=== PATIENT | female | born 1940 | race Caucasian/White ===

== ENCOUNTER 2016-05-10 05:08 | Inpatient (IN) ==
[2016-05-10] MEDS ORDERED: Naloxone 0.4 MG/ML INJ IVP PRN (09:07)
--- NOTE | 2016-05-10 09:50 | Internal Med History&Physical ---
Date of Encounter: 05/10/16 Time of Encounter: 09:49 Assessment and Plan (1) Bilateral leg weakness Status: Inactive Bilateral lower limb weakness: -Possible multi-factorial. -CT scan of the brain is normal, CT scan of the cervical spine is normal Imaging did not show any major issues. Plan -Neurology opinion. -Physical therapy/occupational therapy evaluation -Close observation -Imaging done of right shoulder and hip along with pelvis: No abnormality noted (2) Hyperglycemia due to type 2 diabetes mellitus Status: Inactive Patient is a hyperglycemia likely secondary to underlying stress We will resume her home insulin dose. I do anticipate elevated blood sugar for next 24-36 hours. We will also closely. 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 Qualified Code(s): E11.65 - Type 2 diabetes mellitus with hyperglycemia (3) Hypertension Status: Chronic We will resume home medication Qualifiers: Hypertension type: essential hypertension Qualified Code(s): I10 - Essential (primary) hypertension (4) DVT prophylaxis Status: Acute Heparin Medical decision making: This patient has [id number] risk of worsening in spite of being on appropriate therapy Internal Medicine - H&P: HPI Chief complaint: Multiple falls Admitted From: Hospital to Hospital Transfer Plans for Post Hospital Care: Home History of present illness: PCP:Dr Lakhani Brief PMH: COPD, CVA, diabetes, hyperlipidemia, hypertension History of present illness: 75-year-old female was admitted at [facility] emergency room. She was evaluated in the [facility] emergency room for bilateral lower limb weakness. Patient had a fall and she was in [place] down there for more than 10 minutes. Patient was lying down on her right side. Patient denied at that time neck pain. This fall happened on . Patient was taken home by her family. Since Wednesday patient has a persistent back pain, neck pain and headache. In last 24-48 hours her pain was progressively worsened and that made to go to the emergency room [facility]. Workup at emergency room: Patient was examined at emergency room. She underwent CT scan of the head and CT scan of the cervical spine. Imaging did not show any major abnormality. Patient was transferred to this hospital for further evaluation. The reason for transfer is possible trauma/rhabdomyolysis. Reason for transfer: Multiple falls. Patient had a previous cervical spine surgery. To rule out rhabdomyolysis. Family history noncontributory. Past Med Surg Social Fam HX - Past Medical History Medical history: COPD, CVA, diabetes, hyperlipidemia, hypertension Psychiatric history: no psych history - Social History Smoking Status: Never smoker Smokeless Tobacco Status: No Alcohol use: none Drug use: none Internal Medicine - H&P: Meds Bumetanide [Bumex] 0.5 mg PO QAM 03/19/15 [History] Gabapentin [Neurontin] 300 mg PO BID 03/19/15 [History] Insulin ASPART [NovoLOG] 26 - 40 unit SQ BID 03/19/15 [History] Lisinopril [Zestril] 40 mg PO QAM 03/19/15 [History] Metformin [Glucophage] 1,000 mg PO BIDWM 03/19/15 [History] Metoprolol [Lopressor] 50 mg PO BID 03/19/15 [History] Simvastatin [Zocor] 40 mg PO HS 03/19/15 [History] Amlodipine [Norvasc] 5 mg PO DAILY #30 tablet 05/14/16 [Rx] Ciprofloxacin HCl [Cipro] 500 mg PO BID #14 tablet 05/14/16 [Rx] Simethicone [Gas-X] 80 mg PO TID PRN #20 tab.chew 05/14/16 [Rx] Walker W Wheels [WHEELED WALKER] 1 each .ROUTE AD #1 each 05/14/16 [Rx] Allergies No Known Allergies Allergy (Verified 03/19/15 10:39) All Systems PM: A 10-system review of systems was performed and is negative for pertinent findings except as documented above in the HPI. - Constitutional Constitutional: lethargy, malaise, weakness, no chills, no fever(s), no night sweats - EENT Eyes: no change in vision, no discharge, no pain, no photophobia Ears: no ear discharge, no ear pain, no tinnitus Nose, mouth and throat: no dysphagia, no nasal discharge, no neck pain, no sore throat - Cardiovascular Cardiovascular ROS IM: no chest pain, no diaphoresis, no dyspnea, no lightheadedness, no palpitations, no syncope - Respiratory Respiratory: no cough, no dyspnea, no wheezing, no excessive phlegm production - Gastrointestinal Gastrointestinal: no abdominal pain, no diarrhea, no hematemesis, no hematochezia, no melena, no nausea, no vomiting - Genitourinary Genitourinary: no change in urinary stream, no dysuria, no flank pain, no hematuria - Musculoskeletal Musculoskeletal ROS IM: no numbness, no tingling - Integumentary Integumentary IM: no rash, no unusual bruising - Neurological Neurological ROS: no confusion, no convulsions, no focal weakness, no numbness, no tingling, no tremor(s) - Hematologic/Lymphatic Hematologic/Lymphatic: no easy bruising - Constitutional Vitals: Temp Pulse Resp BP Pulse Ox 98.7 F 72 18 138/67 94 L 05/10/16 07:01 05/10/16 07:01 05/10/16 07:01 05/10/16 07:01 05/10/16 07:01 General appearance: Present: A&O X 3, pleasant, no acute distress, answers questions appropriately - Head Head exam: Present: atraumatic, normocephalic - Eye Eye exam: Present: PERRL, conjuntiva pink, sclera anicteric Pupils: Present: PERRL - Neck Neck exam general surgery: Present: supple, trachea midline. Absent: lymphadenopathy - Respiratory Respiratory exam: Present: CTAB. Absent: accessory muscle use, rales, rhonchi, wheezes - Cardiovascular Cardiovascular exam: Present: RRR, +S1, +S2. Absent: diastolic murmur, gallop, rubs, systolic murmur - GI/Abdominal GI/Abdominal exam: Present: normal bowel sounds, soft, no peritoneal signs. Absent: distended, tenderness - Extremities Exam Extremities exam: Present: warm, radial pulses palpable and symetrical. Absent : calf tenderness, cyanotic, pedal edema - Neurological Exam Neurological exam: Present: CN II-XII intact, oriented X3, no focal deficits. Absent: pronater drift, facial droop, speech deficit - Skin Skin exam: Present: dry, intact Internal Med - H&P Results - Labs CBC & Chem 7: 05/13/16 06:16 05/14/16 04:04
[2016-05-10] MEDS ORDERED: Dextrose Gel 15 GM PO PRN ×2 (09:57)
[2016-05-10] MEDS ORDERED: D5% in Water 1,000 ML IV PRN (09:57)
[2016-05-10] MEDS ORDERED: *HR* Dextrose 50 % in Water (Syg) 50 ML SYRINGE IVP PRN (09:57)
[2016-05-10] MEDS: *HR* Morphine 2 MG/ML SYRINGE IVP PRN ×2 (11:55→19:39)
[2016-05-10] MEDS: 0.9 % Sodium Chloride 1,000 ML IVC SCH (12:40)
[2016-05-10] MEDS: Insulin LISPRO 300 UNITS/3 ML VIAL SQ SCH ×3 (13:12→19:45)
--- NOTE | 2016-05-10 17:23 | Neurology - Consult Note ---
Date of Encounter: 05/10/16 Time of Encounter: 17:21 Assessment and Plan (1) Bilateral leg weakness Current Visit: No Status: Acute Patient seemed to have a fall and no continued to have some problem of the lower extremity but predominantly weakness and difficulty with a gait imbalance no focal findings on examination particularly because some of his stroke symptoms are more of bilateral biopsy may have underlying degenerative lumbar spine and symptoms could be related. She may benefit from imaging studies of the lumbar spine. She already had a CT of the cervical spine that did not show any acute abnormality though we may do an MRI of the cervical spine but usually is not helpful due to the hardware artifact No evidence of any stroke on CT of the head and also not on examiner history do not think any MRI of the brain would be helpful at this time Check for any underlying metabolic or infectious processes that may be causing or contributing to her symptoms I would also recommend checking for vitamin B12 folate and TSH if not done so She may benefit from short-term rehabilitation physical therapy evaluation particularly for gait and balance training exercises (2) H/O cervical spine surgery Current Visit: Yes Status: Acute History of Present Illness HPI: Ms. Guzman is a 75 year old female who apparently was evaluated in the [facility] emergency room for bilateral lower limb weakness. Patient had a fall and she was in [place] down there for more than 10 minutes. Patient was lying down on her right side. Patient denied at that time neck pain. This fall happened on . Patient was taken home by her family. Since Wednesday patient has a persistent back pain, neck pain and headache. In last 24-48 hours her pain was progressively worsened and that made to go to the emergency room [facility]. She underwent CT scan of the head and CT scan of the cervical spine. Both of them were negative for any acute process she was transferred to this hospital for further evaluation. Patient has a history of cervical surgery about 2 years ago has done fairly well she did have significant weakness and numbness and paresthesias before the surgery but able to walk without any help after the surgery Past Med Surg Social Fam HX - Past Medical History Medical history: COPD, CVA, diabetes, hyperlipidemia, hypertension Psychiatric history: no psych history - Social History Smoking Status: Never smoker Smokeless Tobacco Status: No Alcohol use: none Drug use: none Medications and Allergies Bumetanide [Bumex] 0.5 mg PO QAM 03/19/15 [History] Gabapentin [Neurontin] 300 mg PO BID 03/19/15 [History] Insulin ASPART [NovoLOG] 26 - 40 unit SQ BID 03/19/15 [History] Lisinopril [Zestril] 40 mg PO QAM 03/19/15 [History] Metformin [Glucophage] 1,000 mg PO BIDWM 03/19/15 [History] Metoprolol [Lopressor] 50 mg PO BID 03/19/15 [History] Simvastatin [Zocor] 40 mg PO HS 03/19/15 [History] Allergies No Known Allergies Allergy (Verified 03/19/15 10:39) All Systems: A 10-system review of systems was performed and is negative for pertinent findings except as documented above in the HPI. Physical Examination - Vital Signs Vital Signs: Initial Vital Signs Temp Pulse Resp BP Pulse Ox 98.7 F 72 18 138/67 94 L 05/10/16 07:01 05/10/16 07:01 05/10/16 07:01 05/10/16 07:01 05/10/16 07:01 - Constitutional General appearance: comfortable - Neurologic Detailed motor examination: full strength in all major muscle groups Motor examination - right side: 4/5: director of anesthesia services, hip flexors, tibialis Anterior, quadriceps, toe extension (EHL), plantarflexion, 5/5: deltoids, biceps, triceps , wrist flexion, wrist extension Motor examination - left side: 4/5: hip flexors, director of anesthesia services, quadriceps, tibialis Anterior, toe extension (EHL), plantarflexion, 5/5: deltoids, biceps, triceps, wrist flexion, wrist extension Detailed sensory examination: intact Reflexes: Biceps: 1+, Triceps: 1+, Brachioradialis: 1+, Patella: 1+, Achilles: 1 + Mental Status Examination: awake, alert, oriented to person, oriented to place, oriented to time, follows commands appropriately, answers questions appropriately, no agnosia, no aphasia, no aproxia Cranial nerve examination: PERRL, EOMI, visual jc intact, corneal reflexes brisk symmetrically, sensory to face intact, mastication intact, no facial asymmetry is present, no dysarthria, hearing is intact symmetrically, soft palate elevates bilaterally upon phonation, gag reflex intact, flexes SCM and trapezius muscles symmetrically with full power, tongue protrudes midline, no atrophy or facial fasiculations present Cerebellar examination: no dysmetria, performs finger to nose and heel to eng symmetrically without ataxia, no gait ataxia, no truncal ataxia, no difficulty with rapid alternating movements Results - Laboratory Findings Abnormal lab findings: Abnormal lab results POC Glucose 333 (58-89) H 05/10/16 16:09 Consult Discharge Plan - Plan Referrals: Franc Lakhani, [Primary Care Provider] -
[2016-05-10] MEDS: Gabapentin 300 MG CAPSULE PO SCH (19:40)
[2016-05-10] MEDS ORDERED: Insulin LISPRO 300 UNITS/3 ML VIAL SQ SCH (21:00)
[2016-05-11] MEDS: 0.9 % Sodium Chloride 1,000 ML IVC SCH ×2 (00:52→17:15)
[2016-05-11] MEDS: *HR* Morphine 2 MG/ML SYRINGE IVP PRN ×4 (00:58→21:32)
[2016-05-11 01:20] LABS: Basophils % 0.3 %; Eosinophils # 0.5 K/mcL (0.0-0.6); Eosinophils % 4.7 %; Hematocrit 34.9 % (35.3-44.9); Hemoglobin 10.8 g/dL (11.5-15.4); Immature Granulocytes % 0.3 % (0-4); Lymphocytes % 51.3 %; Mean Corpuscular HGB Conc 30.9 g/dL (31.6-35.5); Mean Corpuscular Hemoglobin 26.2 pg (28.0-33.3); Mean Corpuscular Volume 84.7 fL (83.0-100.0); Mean Platelet Volume 11.4 fL (9.4-12.4); Monocytes # 0.8 K/mcL (0.0-1.3); Monocytes % 8.2 %; Neutrophils # 3.5 K/mcL (1.6-8.9); Platelet Count 230 K/mcL (140-400); Red Blood Count 4.12 M/mcL (3.82-4.97); Red Cell Distribution Width 13.7 % (11.5-14.5); Segmented Neutrophils % 35.2 %
[2016-05-11 01:28] LABS: Alanine Aminotransferase 10 Units/L (0-55); Albumin 2.7 g/dL (3.5-5.0); Albumin/Globulin Ratio 0.8 (1.1-2.2); Alkaline Phosphatase 91 Units/L (38-126); Aspartate Amino Transferase 9 Units/L (5-34); BUN/Creatinine Ratio 21 (6-26); Bilirubin,Total 0.3 mg/dL (0.2-1.2); Blood Urea Nitrogen 22 mg/dL (7-20); Calcium 8.5 mg/dL (8.6-10.8); Carbon Dioxide 26 mEq/L (19-29); Chloride 106 mEq/L (98-109); Chol/HDL Ratio 3.9 (0-4.9); Cholesterol 167 mg/dL (< 200); Globulin 3.6 g/dL (2.4-3.5); Glucose 256 mg/dL (70-99); HDL Cholesterol 43 mg/dL (40-59); LDL Cholesterol,Calculated 96 mg/dL (0-99); Magnesium 1.9 mg/dL (1.6-2.6); Osmolality,Calculated 300 (280-300); Phosphorous 4.2 mg/dL (2.3-4.7); Potassium 4.7 mEq/L (3.5-4.5); Sodium 139 mEq/L (136-145); Total Protein 6.3 g/dL (6.0-8.3); Triglycerides 142 mg/dL (< 150); eGFR For African Americans > 60 (> 60); eGFR For Non-African Americans 50 (> 60)
[2016-05-11] MEDS: Insulin LISPRO 300 UNITS/3 ML VIAL SQ SCH ×4 (08:39→23:25)
[2016-05-11] MEDS: Gabapentin 300 MG CAPSULE PO SCH ×2 (08:39→23:25)
[2016-05-11] MEDS: Lisinopril 20 MG TABLET PO SCH (08:39)
--- NOTE | 2016-05-11 11:02 | Neurology Progress Note ---
<Alex Pelletier - Last Filed: 05/11/16 10:56> Date of Encounter: 05/11/16 Time of Encounter: 09:30 Assessment and Plan (1) Bilateral leg weakness Current Visit: No Status: Acute Patient able to ambulate halls without difficulty but she remains weak from her baseline without definitive cause. CT lumbar spine demonstrated mild-moderate thecal sac compression. We will obtain MRI of the patient's lumbar spine. (2) H/O cervical spine surgery Current Visit: Yes Status: Chronic (3) Headache Current Visit: Yes Status: Acute Acute headache that began roughly 1 week ago that is different than her baseline headaches associated with patient's occipital neuralgia. Patient localized to right parietal lobe. Admitted FHx of cerebral aneurysms. We will obtain MRA of the head. Qualifiers: Headache type: unspecified Headache chronicity pattern: acute headache Intractability: not intractable Qualified Code(s): R51 - Headache Subjective Principal diagnosis: Leg weakness, fall Interval history: Patient states she has gained strength in her lower extremities. Able to ambulate with walker assistance which she was unable to do 1 day ago. Patient denies any other symptoms at this time other than this headache. Objective - Constitutional Vitals: Temp Pulse Resp BP Pulse Ox 97.8 F 62 18 172/61 94 L 05/11/16 07:24 05/11/16 07:24 05/11/16 07:24 05/11/16 07:24 05/11/16 07:24 General appearance: Present: A&O X 3, no acute distress - Neurological Exam Sensorimotor examination: Present: intact Motor Examination: Present: full strength in all major muscle groups Motor examination - right side: 5/5: deltoids, biceps, triceps, wrist flexion, wrist extension, lining sewer, hip flexors, tibialis Anterior, quadriceps, toe extension (EHL), plantarflexion Motor examination - left side: 5/5: deltoids, biceps, triceps, wrist flexion, wrist extension, hip flexors, lining sewer, quadriceps, tibialis Anterior, toe extension (EHL), plantarflexion Sensation intact: Present: intact Reflexes: Biceps: 2+, Patella: 2+ Mental Status Examination: Present: awake, alert, oriented to person, oriented to place, oriented to time, follows commands appropriately, answers questions appropriately, no agnosia, no aphasia, no aproxia Cranial nerve examination: Present: PERRL, EOMI, visual jc intact, corneal reflexes brisk symmetrically, sensory to face intact, mastication intact, no facial asymmetry is present, no dysarthria, hearing is intact symmetrically, soft palate elevates bilaterally upon phonation, gag reflex intact, flexes SCM and trapezius muscles symmetrically with full power, tongue protrudes midline, no atrophy or facial fasiculations present Cerebellar examination: Present: no dysmetria, performs finger to nose and heel to eng symmetrically without ataxia, no gait ataxia, no truncal ataxia, no difficulty with rapid alternating movements - VTE Documentation of Mechanical Device: Intermittent pneumatic compression device Results - Laboratory Findings CBC and BMP: 05/11/16 00:31 05/11/16 00:31 Abnormal lab findings: Abnormal lab results Hgb 10.8 g/dL (11.5-15.4) L 05/11/16 00:31 Hct 34.9 % (35.3-44.9) L 05/11/16 00:31 MCH 26.2 pg (28.0-33.3) L 05/11/16 00:31 MCHC 30.9 g/dL (31.6-35.5) L 05/11/16 00:31 Lymphocytes # 5.0 K/mcL (0.6-4.6) H 05/11/16 00:31 Potassium 4.7 mEq/L (3.5-4.5) H 05/11/16 00:31 BUN 22 mg/dL (7-20) H 05/11/16 00:31 Est GFR (Non-Af Amer) 50 (> 60) L 05/11/16 00:31 Glucose 256 mg/dL (70-99) H 05/11/16 00:31 POC Glucose 208 (58-89) H 05/11/16 07:32 Calcium 8.5 mg/dL (8.6-10.8) L 05/11/16 00:31 Albumin 2.7 g/dL (3.5-5.0) L 05/11/16 00:31 Globulin 3.6 g/dL (2.4-3.5) H 05/11/16 00:31 Albumin/Globulin Ratio 0.8 (1.1-2.2) L 05/11/16 00:31 Consult Discharge Plan - Plan Referrals: Franc Lakhani, DO [Primary Care Provider] - - Attending Attestation I examined this patient and my medical decision-making was reviewed with the Resident Physician. I agree with the documented findings, disposition and treatment plan as described except to the extent set forth below. <Rai Brownlee I - Last Filed: 05/11/16 16:18> Date of Encounter: 05/11/16 Assessment and Plan (1) Bilateral leg weakness Current Visit: No Status: Acute The lumbar spine did not show any critical stenosis noted is degenerative changes noted throughout the disc disease but no evidence of any cord compression and no evidence of any cauda equina. Patient would benefit from physical therapy evaluation pt seen and examined agree with Dr Danilo Brownlee MD (2) H/O cervical spine surgery Current Visit: Yes Status: Chronic Objective - Constitutional Vitals: Temp Pulse Resp BP Pulse Ox 97.9 F 66 18 205/102 93 L 05/11/16 16:12 05/11/16 16:12 05/11/16 16:12 05/11/16 16:12 05/11/16 16:12 Results - Laboratory Findings CBC and BMP: 05/11/16 00:31 05/11/16 00:31 Abnormal lab findings: Abnormal lab results Hgb 10.8 g/dL (11.5-15.4) L 05/11/16 00:31 Hct 34.9 % (35.3-44.9) L 05/11/16 00:31 MCH 26.2 pg (28.0-33.3) L 05/11/16 00:31 MCHC 30.9 g/dL (31.6-35.5) L 05/11/16 00:31 Lymphocytes # 5.0 K/mcL (0.6-4.6) H 05/11/16 00:31 Potassium 4.7 mEq/L (3.5-4.5) H 05/11/16 00:31 BUN 22 mg/dL (7-20) H 05/11/16 00:31 Est GFR (Non-Af Amer) 50 (> 60) L 05/11/16 00:31 Glucose 256 mg/dL (70-99) H 05/11/16 00:31 POC Glucose 253 (58-89) H 05/11/16 11:13 Calcium 8.5 mg/dL (8.6-10.8) L 05/11/16 00:31 Albumin 2.7 g/dL (3.5-5.0) L 05/11/16 00:31 Globulin 3.6 g/dL (2.4-3.5) H 05/11/16 00:31 Albumin/Globulin Ratio 0.8 (1.1-2.2) L 05/11/16 00:31
--- NOTE | 2016-05-11 16:02 | Internal Med Progress Note ---
Date of Encounter: 05/11/16 Time of Encounter: 15:30 - Assessment and plan (1) Lumbar nerve root compression Current Visit: Yes Status: Acute Assessment and plan: CT of lumbar spine revealing thecal sac compression and MRI revealing nerve root compression of L5. On examination, patient has lumbar radiculopathy on both the right and the left side. I have spoken to Spinal surgeon Dr. Sena who was brought on board for consultation. OT and PT evaluations pending. Of note, family stating that up until last , patient was able to walk and run around with her young granddaughter. They state that she had a mechanical fall and slipped on the monitor on and then starting on Wednesday she became increasingly more weak and was unable to ambulate without 2 people assisting her. These are all new symptoms. Plain films of shoulder and hip unremarkable. ITS Impressions Shoulder X-Ray 05/10/16 09:12 IMPRESSION: No acute bony abnormality. D/ / Billie Padilla Cha, MD / Billie Padilla Cha, MD Interpreting Provider: Billie Padilla Cha, MD Hip/Pelvis X-Ray 05/10/16 09:13 IMPRESSION: No acute osseus abnormality in the pelvis or hips bilaterally. Mild bilateral joint osteoarthritis. D/ / Claudia Alba MD / Claudia Alba MD Interpreting Provider: Claudia Alba MD Lumbar Spine CT 05/11/16 09:45 IMPRESSION: No evidence of lumbar spine fracture or subluxation. Suspect mild -moderate thecal sac compression at L3-4 and moderate multilevel neural foraminal narrowing. Fat stranding surrounds the distal descending colon has the appearance of acute diverticulitis. If the patient has abdominal pain, further evaluation with CT abdomen may be helpful. 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 There is moderate spinal canal stenosis at L2-L3 and L3-L4. There is [id number] spinal canal stenosis at L4-L5. Left subarticular disc extrusion at L4-L5 compresses the descending left L5 nerve root. Correlate with clinical symptoms of left L5 radiculopathy. Multilevel neural foraminal narrowing, including moderate left neural foraminal stenosis at L3-L4 and L4-L5. D/ / 05/11/2016 13:49:59 Val Webb MD / elisha Interpreting Provider: Val Webb MD (2) Bilateral leg weakness Current Visit: No Status: Acute Assessment and plan: See prior note for lumbar nerve root compression (3) Diverticulitis Current Visit: Yes Status: Acute Assessment and plan: Appears to be an incidental finding during imaging of her lumbar spine however patient endorsing lower abdominal pain and tenderness that started a couple days ago. We will put her on clear diet for bowel rest and continue to monitor. She has not had a bowel movement for several days. She is flatulent. On examination, abdomen distended and diffusely tender across her lower abdomen. Bowel sounds present 4 quadrants. We will initiate Zosyn and monitor. No leukocytosis. 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 There is moderate spinal canal stenosis at L2-L3 and L3-L4. There is [id number] spinal canal stenosis at L4-L5. Left subarticular disc extrusion at L4-L5 compresses the descending left L5 nerve root. Correlate with clinical symptoms of left L5 radiculopathy. Multilevel neural foraminal narrowing, including moderate left neural foraminal stenosis at L3-L4 and L4-L5. D/ / 05/11/2016 13:49:59 Val Webb MD / elisha Interpreting Provider: Val Webb MD (4) Headache Current Visit: Yes Status: Acute Assessment and plan: Acute. Head CT negative. 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 Neurology on board and have cleared her for outpatient follow-up with [facility] or [facility]. Patient denies vision changes. We will treat symptomatically. 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 CT angiography of the brain with contrast is recommended for further evaluation. The findings were sent to the Radiology Results Communication Center at 1:40 pm on 05/11/2016to be communicated to a licensed caregiver. D/ / 05/11/2016 13:57:45 [facility] Inter[facility]ting Provider: Jesse Chen MD Qualifiers: Headache type: unspecified Headache chronicity pattern: acute headache Intractability: not intractable Qualified Code(s): R51 - Headache (5) Aneurysm, carotid artery, internal Current Visit: Yes Status: Acute Assessment and plan: See prior note for headache (6) Diabetes mellitus Current Visit: Yes Status: Chronic Assessment and plan: No recent A1c, will add on to a.m. labs. Hyperglycemia noted, will will increase sliding scale to medium dose Qualifiers: Diabetes mellitus type: type 2 Diabetes mellitus complication status: with hyperglycemia Diabetes mellitus mcc insulin use: with terminologist use Qualified Code(s): E11.65 - Type 2 diabetes mellitus with hyperglycemia; Z79.4 - superintendent container terminal (current) use of insulin (7) DENA (acute kidney injury) Current Visit: Yes Status: Acute Assessment and plan: Mild, creatinine normal, we will trend (8) DVT prophylaxis Current Visit: Yes Status: Acute Assessment and plan: IPC's. (9) Hypertension Current Visit: Yes Status: Chronic Assessment and plan: Borderline hypertensive. Her home lisinopril 40 mg, metoprolol 50 mg twice a day had been continued. We will continue to address her pain. Hydralazine IV as needed Qualifiers: Hypertension type: essential hypertension Qualified Code(s): I10 - Essential (primary) hypertension (10) H/O cervical spine surgery Current Visit: Yes Status: Chronic - Subjective Interval history: Patient seen and examined. On examination, patient is sitting upright in bed conversing with her family. Patient complains of pain to her right shoulder across her anterior chest. She also complains of a headache. She also complains of right leg pain that is worse than her current left leg pain. She also complains of lower abdominal pain. - Constitutional Vitals: Temp Pulse Resp BP Pulse Ox 98.0 F 60 18 163/59 93 L 05/11/16 11:07 05/11/16 11:07 05/11/16 11:07 05/11/16 11:07 05/11/16 11:07 General appearance: Present: A&O X 3, pleasant, no acute distress, answers questions appropriately - Head Head exam: Present: atraumatic, normocephalic - Eye Eye exam: Present: PERRL, conjuntiva pink, sclera anicteric Pupils: Present: PERRL - Neck Neck exam general surgery: Present: supple, trachea midline. Absent: lymphadenopathy - Respiratory Respiratory exam: Present: CTAB. Absent: accessory muscle use, rales, respiratory distress, rhonchi, wheezes - Cardiovascular Cardiovascular exam: Present: RRR, +S1, +S2. Absent: diastolic murmur, gallop, rubs, systolic murmur - GI/Abdominal GI/Abdominal exam: Present: distended, hyperactive bowel sounds, soft, tenderness (across lower abd), no peritoneal signs - Extremities Exam Extremities exam: Present: warm, radial pulses palpable and symetrical. Absent : calf tenderness, cyanotic, pedal edema - Neurological Exam Neurological exam: Present: alert, CN II-XII intact, oriented X3, no focal deficits, strengths equal and symetr throughout. Absent: pronater drift, facial droop, speech deficit - Skin Skin exam: Present: dry, intact, pallor, warm Internal Medicine: Result - Labs CBC & Chem 7: 05/11/16 00:31 05/11/16 00:31 Labs: Short CBC 05/11/16 Range/Units 00:31 WBC 9.8 (4.3-11.1) K/mcL Hgb 10.8 L (11.5-15.4) g/dL Hct 34.9 L (35.3-44.9) % Plt Count 230 (140-400) K/mcL Neutrophils # 3.5 (1.6-8.9) K/mcL BMP 05/11/16 00:31 Sodium 139 Potassium 4.7 H Chloride 106 Carbon Dioxide 26 BUN 22 H Creatinine 1.07 Glucose 256 H Calcium 8.5 L Cardiac Enzymes 05/10/16 05/10/16 05/10/16 Range/Units 15:22 19:58 21:29 Troponin I 0.01 0.00 0.01 (0-0.03) ng/mL 05/11/16 05/11/16 Range/Units 00:31 06:43 Troponin I 0.00 0.00 (0-0.03) ng/mL Liver Function 05/11/16 Range/Units 00:31 Total Bilirubin 0.3 (0.2-1.2) mg/dL AST 9 (5-34) Units/L ALT 10 (0-55) Units/L Alkaline Phosphatase 91 (38-126) Units/L Albumin 2.7 L (3.5-5.0) g/dL - Impressions Impressions Lumbar Spine CT 05/11/16 09:45 IMPRESSION: No evidence of lumbar spine fracture or subluxation. Suspect mild -moderate thecal sac compression at L3-4 and moderate multilevel neural foraminal narrowing. Fat stranding surrounds the distal descending colon has the appearance of acute diverticulitis. If the patient has abdominal pain, further evaluation with CT abdomen may be helpful. 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 CT angiography of the brain with contrast is recommended for further evaluation. The findings were sent to the Radiology Results Communication Center at 1:40 pm on 05/11/2016to be communicated to a licensed caregiver. 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 There is moderate spinal canal stenosis at L2-L3 and L3-L4. There is [id number] spinal canal stenosis at L4-L5. Left subarticular disc extrusion at L4-L5 compresses the descending left L5 nerve root. Correlate with clinical symptoms of left L5 radiculopathy. Multilevel neural foraminal narrowing, including moderate left neural foraminal stenosis at L3-L4 and L4-L5. D/ / 05/11/2016 13:49:59 Val Webb MD / elisha Interpreting Provider: Val Webb MD - VTE Documentation of Mechanical Device: Intermittent pneumatic compression device Consult Discharge Plan - Plan Referrals: Franc Lakhani, DO [Primary Care Provider] -
[2016-05-11] MEDS ORDERED: Ondansetron 4 MG/2 ML VIAL IVP PRN (16:20)
[2016-05-11] MEDS ORDERED: *HR* Promethazine 25 MG/ML VIAL IVP PRN (16:20)
[2016-05-11] MEDS: Piperacillin/Tazobactam 3.375 GM in D5% in Water (Mini-Bag+) 100 ML IVPB SCH ×2 (17:14→23:26)
[2016-05-11] MEDS: Simethicone 80 MG TAB.CHEW PO SCH ×2 (17:14→23:25)
[2016-05-12] MEDS: *HR* Morphine 2 MG/ML SYRINGE IVP PRN (05:22)
[2016-05-12] MEDS: Piperacillin/Tazobactam 3.375 GM in D5% in Water (Mini-Bag+) 100 ML IVPB SCH ×4 (05:48→22:20)
[2016-05-12 06:42] LABS: Basophils % 0.4 %; Eosinophils # 0.5 K/mcL (0.0-0.6); Eosinophils % 5.9 %; Hematocrit 36.4 % (35.3-44.9); Hemoglobin 11.3 g/dL (11.5-15.4); Immature Granulocytes % 0.5 % (0-4); Lymphocytes # 3.8 K/mcL (0.6-4.6); Lymphocytes % 44.5 %; Mean Corpuscular Hemoglobin 26.3 pg (28.0-33.3); Mean Corpuscular Volume 84.8 fL (83.0-100.0); Mean Platelet Volume 11.1 fL (9.4-12.4); Monocytes # 0.7 K/mcL (0.0-1.3); Monocytes % 8.1 %; Neutrophils # 3.5 K/mcL (1.6-8.9); Platelet Count 220 K/mcL (140-400); Red Blood Count 4.29 M/mcL (3.82-4.97); Red Cell Distribution Width 13.6 % (11.5-14.5); Segmented Neutrophils % 40.6 %
[2016-05-12 06:58] LABS: BUN/Creatinine Ratio 20 (6-26); Blood Urea Nitrogen 18 mg/dL (7-20); Calcium 8.3 mg/dL (8.6-10.8); Carbon Dioxide 25 mEq/L (19-29); Chloride 107 mEq/L (98-109); Glucose 176 mg/dL (70-99); Osmolality,Calculated 298 (280-300); Potassium 4.6 mEq/L (3.5-4.5); Sodium 141 mEq/L (136-145); eGFR For African Americans > 60 (> 60); eGFR For Non-African Americans > 60 (> 60)
[2016-05-12 07:21] LABS: Thyroid Stimulating Hormone 1.153 mcIU/mL (0.350-4.840)
[2016-05-12 07:35] LABS: Folate 8.3 ng/mL (7.0-31.4)
[2016-05-12] MEDS: Simethicone 80 MG TAB.CHEW PO SCH ×3 (09:10→22:20)
[2016-05-12] MEDS: Gabapentin 300 MG CAPSULE PO SCH ×2 (09:11→22:20)
[2016-05-12] MEDS: Insulin LISPRO 300 UNITS/3 ML VIAL SQ SCH ×4 (09:11→22:19)
[2016-05-12] MEDS: Lisinopril 20 MG TABLET PO SCH (09:11)
--- NOTE | 2016-05-12 10:11 | Pain Management Consultation ---
Date of Encounter: 05/12/16 Time of Encounter: 12:21 Assessment and Plan (1) Lumbar radiculopathy Current Visit: Yes Status: Chronic PLAN: 1. Recommend follow up in the spine center with interventional pain medicine. 2. MRI and exam are reassuring for the time being. The assessment and plan as outlined above was discussed with the patient and/or family members who expressed understanding and agreement. All questions were answered. History of Present Illness Chief complaint: back pain HPI: Ms. Guzman is a 75 year old female who recently fell in a ditch outside of her home. She has a long-standing history of back and leg pain for the past 30 years. She describes the episode of falling in the ditch causing her worst pain in the back and also more weakness and numbness in her legs. The weakness and numbness has gotten somewhat better since a fall a few days ago. She states that the pain in her back is a deep aching sensation that is usually graded high, 8/10. She finds the pain is not severely limit her activity. She has suffered the loss of her due to but now has a new boyfriend. Given this situation, her activity level is slowly increasing, but her daily pain continues. She does feel pain traveling into her legs, but she has difficulty describing the locations of pain in her legs. She does not routinely take pain medication other than acetaminophen. She has never seen pain medicine physicians. She has never had spinal injections. She has not had spine surgery in her lumbar area. She has had a cervical anterior fusion. Past Med Surg Social Fam HX - Past Medical History Medical history: COPD, CVA, diabetes, hyperlipidemia, hypertension Psychiatric history: no psych history - Social History Smoking Status: Never smoker Smokeless Tobacco Status: No Alcohol use: none Drug use: none Medications and Allergies Bumetanide [Bumex] 0.5 mg PO QAM 03/19/15 [History] Gabapentin [Neurontin] 300 mg PO BID 03/19/15 [History] Insulin ASPART [NovoLOG] 26 - 40 unit SQ BID 03/19/15 [History] Lisinopril [Zestril] 40 mg PO QAM 03/19/15 [History] Metformin [Glucophage] 1,000 mg PO BIDWM 03/19/15 [History] Metoprolol [Lopressor] 50 mg PO BID 03/19/15 [History] Simvastatin [Zocor] 40 mg PO HS 03/19/15 [History] Allergies No Known Allergies Allergy (Verified 03/19/15 10:39) Review of Systems - Constitutional Constitutional ROS IM: no photophobia, no phonophobia, no daytime sleepiness, no fever(s), no stops breathing during sleep - EENT Nose, mouth and throat: no headache(s), no neck pain, no neck trauma - Cardiovascular Cardiovascular ROS: no chest pain, no leg edema, no lightheadedness - Respiratory Respiratory: no pain on inspiration, no pain with cough - Gastrointestinal Gastrointestinal: no abdominal pain, no constipation, no diarrhea, no heartburn - Genitourinary Genitourinary ROS: no difficulty urinating, no flank pain, no urinary hesitancy - Musculoskeletal Musculoskeletal ROS: no muscle weakness, no numbness, no radiating pain into limb, no tingling - Integumentary Integumentary: no erythema, no lesions, no swelling - Neurological Neurological ROS: no abnormal gait, no behavioral changes, no focal weakness, no radicular pain - Psychiatric Psychiatric general: no anxiety, no confusion, no depression - Hematologic/Lymphatic Hematologic/Lymphatic pediatric: no easy bleeding, no easy bruising Physical Exam Initial Vital Signs Temp Pulse Resp BP Pulse Ox 98.7 F 72 18 138/67 94 L 05/10/16 07:01 05/10/16 07:01 05/10/16 07:01 05/10/16 07:01 05/10/16 07:01 - General physical appearance General physical appearance: awake & oriented, no distress, no pain - Eyes Eye exam: normal ocular movement - ENT normal pinna, normal nares - Neck no masses - Respiratory normal respiratory effort - Abdomen Abdomen: soft, non tender, bowel sounds - Rectum Rectum: normal sphincter tone - Integumentary Integumentary general surgery: no rash - Neurologic normal coordination - Musculoskeletal Musculoskeletal: normal gait, normal posture - Psychiatric Psychiatric: oriented to time, oriented to person, oriented to place - Additional Findings EYES:: pupils equal and round, no myosis. SKIN:: no areas of echymoses or petechiae CARDIOVASCULAR:: regular rate and rhythm, no murmurs PULMONARY:: lung jc clear to auscultation bilaterally. Quiet, normal respiratory pattern. GASTROINTESTINAL:: active bowel sounds. MUSCULOSKELETAL GAIT:: antalgic. PALPATION:: paraspinous musculature is tender to deep palpation in the lumbar area bilaterally. STRENGTH:: RIGHT hip flexors: 5/5 :: LEFT hip flexors: 5/5 RIGHT hip adduction 5/5 :: LEFT hip adduction 5/5 RIGHT hip abduction 5/5 :: LEFT hip abduction 5/5 RIGHT knee extension 5/5 :: LEFT knee extension 5/5 RIGHT knee flexion 5/5 :: LEFT knee flexion 5/5 RIGHT ankle dorsiflexion 5/5 :: LEFT ankle dorsiflexion 5/5 RIGHT ankle plantarflexion 5/5 :: LEFT ankle plantarflexion 5/5 RIGHT great toe dorsiflexion 5/5 :: LEFT great toe dorsiflexion 5/5 RIGHT great toe plantarflexion 5/5 :: LEFT great toe plantarflexion 5/5 STRAIGHT LEG RAISE:: LLE is positive at 100 degrees. RLE is positive at 100 degrees. NEUROLOGIC SENSATION:: hypesthesia is not noted in lower extremity dermatomes, SIGNS OF NEUROVASCULAR COMPRESSION Clonus: none found bilateral with passive ROM at ankle joint Spasticity:: none Atrophy:: not present in UE or LE musculature Fasciculation:: not present in UE or LE musculature PSYCHIATRIC:: ORIENTATION:: awake and alert. INSIGHT:: good awareness of illness. AFFECT:: pleasant. Radiology Images Viewed By Me:: May 2016 lumbar MRI shows no major central canal stenosis. There is disc disease at L3-L4 that is circumferential bulging causing bilateral foraminal narrowing. There is also disc disease at L4-L5 that is a left paracentral disc herniation abutting the traversing left L4 nerve root. L5-S1 also shows a small centralized disc protrusion. I have reviewed and agree with information documented in the scribed documentation, ROS, patient medications, allergies, medical history, surgical history, social history, and family history. Results - Labs 05/12/16 05:16 05/12/16 05:16 Abnormal lab results Hgb 11.3 g/dL (11.5-15.4) L 05/12/16 05:16 MCH 26.3 pg (28.0-33.3) L 05/12/16 05:16 MCHC 31.0 g/dL (31.6-35.5) L 05/12/16 05:16 Potassium 4.6 mEq/L (3.5-4.5) H 05/12/16 05:16 Glucose 176 mg/dL (70-99) H 05/12/16 05:16 POC Glucose 202 (58-89) H 05/12/16 08:17 Calcium 8.3 mg/dL (8.6-10.8) L 05/12/16 05:16 Albumin 2.7 g/dL (3.5-5.0) L 05/11/16 00:31 Globulin 3.6 g/dL (2.4-3.5) H 05/11/16 00:31 Albumin/Globulin Ratio 0.8 (1.1-2.2) L 05/11/16 00:31 Diabetes panel 05/12/16 Range/Units 05:16 Sodium 141 (136-145) mEq/L Potassium 4.6 H (3.5-4.5) mEq/L Chloride 107 (98-109) mEq/L Carbon Dioxide 25 (19-29) mEq/L BUN 18 (7-20) mg/dL Creatinine 0.90 (0.57-1.11) mg/dL Glucose 176 H (70-99) mg/dL Calcium 8.3 L (8.6-10.8) mg/dL Thyroid panel 05/12/16 Range/Units 05:16 TSH 1.153 (0.350-4.840) mcIU/mL Calcium panel 05/12/16 Range/Units 05:16 Calcium 8.3 L (8.6-10.8) mg/dL Pituitary panel 05/12/16 05/12/16 Range/Units 05:16 05:16 Sodium 141 (136-145) mEq/L Potassium 4.6 H (3.5-4.5) mEq/L Chloride 107 (98-109) mEq/L Carbon Dioxide 25 (19-29) mEq/L BUN 18 (7-20) mg/dL Creatinine 0.90 (0.57-1.11) mg/dL Glucose 176 H (70-99) mg/dL Calcium 8.3 L (8.6-10.8) mg/dL TSH 1.153 (0.350-4.840) mcIU/mL Adrenal panel 05/12/16 Range/Units 05:16 Sodium 141 (136-145) mEq/L Potassium 4.6 H (3.5-4.5) mEq/L Chloride 107 (98-109) mEq/L Carbon Dioxide 25 (19-29) mEq/L BUN 18 (7-20) mg/dL Creatinine 0.90 (0.57-1.11) mg/dL Glucose 176 H (70-99) mg/dL Calcium 8.3 L (8.6-10.8) mg/dL All other labs normal. - VTE Documentation of Mechanical Device: Intermittent pneumatic compression device Consult Discharge Plan - Plan Referrals: Franc Lakhani DO [Primary Care Provider] -
--- NOTE | 2016-05-12 11:13 | Spinal Consult Note ---
Date of Encounter: 05/12/16 Time of Encounter: 08:20 Assessment and Plan (1) Lumbar stenosis Current Visit: Yes Status: Chronic On exam afebrile vital signs are stable. She is lying comfortably in bed in only mild distress complaining of diffuse neck shoulder and hip and leg pains. She is neurovascularly intact with regard to her bilateral upper and lower extremities. She fires all motor groups with good strength. She has a negative Misty sign. Her hips move symmetrically. She has no clonus. MRI of the lumbar spine reveals multilevel degenerative changes. There is moderate stenosis at L2-3, L3-4, and L4-5. She has a left paracentral disc protrusion at L4-5 as well. Impression: 1) lumbar stenosis 2) lumbar radiculopathy Plan: The patient has no indications for urgent surgical intervention. I would favor nonoperative treatment plan which would include outpatient physical therapy as well as consideration for lumbar epidural steroid injections. I will have one of my spine Center colleagues, Dr. Ryan Malagon, evaluate the patient for possible injections and nonoperative interventions. The patient is amenable to the plan and would like to proceed. (2) Lumbar radiculopathy Current Visit: Yes Status: Chronic History of Present Illness Chief complaint: back pain and leg pain HPI: Ms. Guzman is a 75 year old female Initially had back and leg pain as well as some weakness approximately 4 days ago which prompted her admission to the [facility]. Workup included an MRI which revealed multilevel stenosis. We are asked to see regarding potential treatment recommendations or interventions. She denies bowel bladder symptomatology or current weakness in the lower extremities. She denies fevers or chills. Past Med Surg Social Fam HX - Past Medical History Medical history: COPD, CVA, diabetes, hyperlipidemia, hypertension Psychiatric history: no psych history - Social History Smoking Status: Never smoker Smokeless Tobacco Status: No Alcohol use: none Drug use: none Medications and Allergies Bumetanide [Bumex] 0.5 mg PO QAM 03/19/15 [History] Gabapentin [Neurontin] 300 mg PO BID 03/19/15 [History] Insulin ASPART [NovoLOG] 26 - 40 unit SQ BID 03/19/15 [History] Lisinopril [Zestril] 40 mg PO QAM 03/19/15 [History] Metformin [Glucophage] 1,000 mg PO BIDWM 03/19/15 [History] Metoprolol [Lopressor] 50 mg PO BID 03/19/15 [History] Simvastatin [Zocor] 40 mg PO HS 03/19/15 [History] Allergies No Known Allergies Allergy (Verified 03/19/15 10:39) Results - Labs Result Diagrams: 05/12/16 05:16 05/12/16 05:16 Labs: Abnormal lab results Hgb 11.3 g/dL (11.5-15.4) L 05/12/16 05:16 MCH 26.3 pg (28.0-33.3) L 05/12/16 05:16 MCHC 31.0 g/dL (31.6-35.5) L 05/12/16 05:16 Potassium 4.6 mEq/L (3.5-4.5) H 05/12/16 05:16 Glucose 176 mg/dL (70-99) H 05/12/16 05:16 POC Glucose 176 (58-89) H 05/12/16 10:46 Calcium 8.3 mg/dL (8.6-10.8) L 05/12/16 05:16 Albumin 2.7 g/dL (3.5-5.0) L 05/11/16 00:31 Globulin 3.6 g/dL (2.4-3.5) H 05/11/16 00:31 Albumin/Globulin Ratio 0.8 (1.1-2.2) L 05/11/16 00:31 H & H 05/12/16 Range/Units 05:16 Hgb 11.3 L (11.5-15.4) g/dL Hct 36.4 (35.3-44.9) % All other labs normal. Consult Discharge Plan - Plan Referrals: Franc Lakhani DO [Primary Care Provider] -
[2016-05-12] MEDS: *HR* OxyCODONE Immed Rel 5 MG TABLET PO PRN (12:30)
--- NOTE | 2016-05-12 14:53 | Internal Med Progress Note ---
Date of Encounter: 05/12/16 Time of Encounter: 14:00 - Assessment and plan (1) Diverticulitis Current Visit: Yes Status: Acute Assessment and plan: Patient continues to complain of pain across her lower abdomen. She is currently tolerating a liquid diet. She is flatulent but has not had a bowel movement since prior to presentation. On examination, abdomen is slightly more distended than yesterday and remains soft with hyperactive bowel sounds throughout. Abdominal CT ordered at this time. Continue Zosyn. 05/11/16 Appears to be an incidental finding during imaging of her lumbar spine however patient endorsing lower abdominal pain and tenderness that started a couple days ago. We will put her on clear diet for bowel rest and continue to monitor. She has not had a bowel movement for several days. She is flatulent. On examination, abdomen distended and diffusely tender across her lower abdomen. Bowel sounds present 4 quadrants. We will initiate Zosyn and monitor. No leukocytosis. 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 There is moderate spinal canal stenosis at L2-L3 and L3-L4. There is [id number] spinal canal stenosis at L4-L5. Left subarticular disc extrusion at L4-L5 compresses the descending left L5 nerve root. Correlate with clinical symptoms of left L5 radiculopathy. Multilevel neural foraminal narrowing, including moderate left neural foraminal stenosis at L3-L4 and L4-L5. D/ / 05/11/2016 13:49:59 Val Webb MD / elisha Interpreting Provider: Val Webb MD (2) Lumbar nerve root compression Current Visit: Yes Status: Acute Assessment and plan: Patient is seen by spinal surgeon Dr. Sena who referred her to pain management doctor Manas and has cleared her for outpatient follow-up. She was seen and evaluated by occupational and physical therapy but at this point, patient is refusing home health services. 05/11/16 CT of lumbar spine revealing thecal sac compression and MRI revealing nerve root compression of L5. On examination, patient has lumbar radiculopathy on both the right and the left side. I have spoken to Spinal surgeon Dr. Sena who was brought on board for consultation. OT and PT evaluations pending. Of note, family stating that up until last , patient was able to walk and run around with her young granddaughter. They state that she had a mechanical fall and slipped on the monitor on and then starting on Wednesday she became increasingly more weak and was unable to ambulate without 2 people assisting her. These are all new symptoms. Plain films of shoulder and hip unremarkable. ITS Impressions Shoulder X-Ray 05/10/16 09:12 IMPRESSION: No acute bony abnormality. D/ / Billie Padilla Cha, MD / Billie Padilla Cha, MD Interpreting Provider: Billie Padilla Cha, MD Hip/Pelvis X-Ray 05/10/16 09:13 IMPRESSION: No acute osseus abnormality in the pelvis or hips bilaterally. Mild bilateral joint osteoarthritis. D/ / Claudia Alba MD / Claudia Alba MD Interpreting Provider: Claudia Alba MD Lumbar Spine CT 05/11/16 09:45 IMPRESSION: No evidence of lumbar spine fracture or subluxation. Suspect mild -moderate thecal sac compression at L3-4 and moderate multilevel neural foraminal narrowing. Fat stranding surrounds the distal descending colon has the appearance of acute diverticulitis. If the patient has abdominal pain, further evaluation with CT abdomen may be helpful. 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 There is moderate spinal canal stenosis at L2-L3 and L3-L4. There is [id number] spinal canal stenosis at L4-L5. Left subarticular disc extrusion at L4-L5 compresses the descending left L5 nerve root. Correlate with clinical symptoms of left L5 radiculopathy. Multilevel neural foraminal narrowing, including moderate left neural foraminal stenosis at L3-L4 and L4-L5. D/ / 05/11/2016 13:49:59 Val Webb MD / elisha Interpreting Provider: Val Webb MD (3) Bilateral leg weakness Current Visit: No Status: Acute Assessment and plan: See prior note for lumbar nerve root compression; improving daily. (4) Headache Current Visit: Yes Status: Acute Assessment and plan: Acute. Head CT negative. 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 Neurology on board and have cleared her for outpatient follow-up with [facility] or [facility]. Patient denies vision changes. We will treat symptomatically. 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 CT angiography of the brain with contrast is recommended for further evaluation. The findings were sent to the Radiology [facility] at 1:40 pm on 05/11/2016to be communicated to a licensed caregiver. D/ / 05/11/2016 13:57:45 Jesse Chen MD / henny Interpreting Provider: Jesse Chen MD Qualifiers: Headache type: unspecified Headache chronicity pattern: acute headache Intractability: not intractable Qualified Code(s): R51 - Headache (5) Aneurysm, carotid artery, internal Current Visit: Yes Status: Acute Assessment and plan: See prior note for headache (6) Diabetes mellitus Current Visit: Yes Status: Chronic Assessment and plan: No recent A1c, will add on to a.m. labs. Hyperglycemia noted yesterday and her sliding scales were increased to medium dose. Glucose currently 176- will trend (7) DENA (acute kidney injury) Current Visit: Yes Status: Resolved (8) DVT prophylaxis Current Visit: Yes Status: Acute Assessment and plan: IPC's. (9) Hypertension Current Visit: Yes Status: Chronic Assessment and plan: Borderline hypertensive at times, however patient still having pain and headache. Her home lisinopril 40 mg, metoprolol 50 mg twice a day had been continued. We will continue to address her pain. Hydralazine IV as needed Qualifiers: Hypertension type: essential hypertension Qualified Code(s): I10 - Essential (primary) hypertension (10) H/O cervical spine surgery Current Visit: Yes Status: Chronic - Time Spent With Patient Greater than 35 minutes (multiple family members- all questions addressed and answered) - Subjective Interval history: Patient seen and examined. On examination, patient is sitting upright in her chair interacting with her family. Patient stating she currently has a headache that has got progressively worse throughout the day. She states that the IV pain medication was too strong states that the oral pain medication was not strong enough. She continues to endorse abdominal pain across her lower abdomen. She denies nausea or vomiting. She denies shortness of breath. - Constitutional Vitals: Temp Pulse Resp BP Pulse Ox 97.8 F 58 16 149/74 96 05/12/16 10:42 05/12/16 10:42 05/12/16 10:42 05/12/16 10:42 05/12/16 10:42 General appearance: Present: A&O X 3, pleasant, no acute distress, answers questions appropriately - Head Head exam: Present: atraumatic, normocephalic - Eye Eye exam: Present: PERRL, conjuntiva pink, sclera anicteric Pupils: Present: PERRL - Neck Neck exam general surgery: Present: supple, trachea midline. Absent: lymphadenopathy - Respiratory Respiratory exam: Present: decreased breath sounds. Absent: accessory muscle use, rales, respiratory distress, rhonchi, wheezes - Cardiovascular Cardiovascular exam: Present: RRR, +S1, +S2. Absent: diastolic murmur, gallop, rubs, systolic murmur - GI/Abdominal GI/Abdominal exam: Present: distended, hyperactive bowel sounds, soft, tenderness, no peritoneal signs - Extremities Exam Extremities exam: Present: warm, radial pulses palpable and symetrical. Absent : calf tenderness, cyanotic, pedal edema - Neurological Exam Neurological exam: Present: alert, CN II-XII intact, oriented X3, no focal deficits, strengths equal and symetr throughout. Absent: pronater drift, facial droop, speech deficit - Skin Skin exam: Present: dry, intact, normal color, warm Internal Medicine: Result - Labs CBC & Chem 7: 03/07/17 05:16 05/12/16 05:16 Labs: Short CBC 05/12/16 Range/Units 05:16 WBC 8.5 (4.3-11.1) K/mcL Hgb 11.3 L (11.5-15.4) g/dL Hct 36.4 (35.3-44.9) % Plt Count 220 (140-400) K/mcL Neutrophils # 3.5 (1.6-8.9) K/mcL BMP 05/12/16 05:16 Sodium 141 Potassium 4.6 H Chloride 107 Carbon Dioxide 25 BUN 18 Creatinine 0.90 Glucose 176 H Calcium 8.3 L - Impressions Impressions Head MRA 05/11/16 11:02 IMPRESSION: Limited exam due to patient motion demonstrating a 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 CT angiography of the brain with contrast is recommended for further evaluation. The findings were sent to the Radiology Results Communication Center at 1:40 pm on 05/11/2016to be communicated to a licensed caregiver. D/ / 05/11/2016 13:57:45 Jesse Chen MD / henny Interpreting Provider: Jesse Chen MD - VTE Documentation of Mechanical Device: Intermittent pneumatic compression device Consult Discharge Plan - Plan Referrals: Franc Lakhani, DO [Primary Care Provider] -
[2016-05-12] MEDS: 0.9 % Sodium Chloride 1,000 ML IVC SCH (22:23)
[2016-05-13] MEDS: Piperacillin/Tazobactam 3.375 GM in D5% in Water (Mini-Bag+) 100 ML IVPB SCH ×3 (06:08→16:51)
[2016-05-13] MEDS: 0.9 % Sodium Chloride 1,000 ML IVC SCH (06:16)
[2016-05-13 07:19] LABS: Basophils % 0.4 %; Eosinophils # 0.5 K/mcL (0.0-0.6); Eosinophils % 5.4 %; Hematocrit 37.1 % (35.3-44.9); Hemoglobin 11.8 g/dL (11.5-15.4); Immature Granulocytes % 0.2 % (0-4); Lymphocytes % 47.1 %; Mean Corpuscular HGB Conc 31.8 g/dL (31.6-35.5); Mean Corpuscular Hemoglobin 26.6 pg (28.0-33.3); Mean Corpuscular Volume 83.6 fL (83.0-100.0); Mean Platelet Volume 11.1 fL (9.4-12.4); Monocytes # 0.6 K/mcL (0.0-1.3); Monocytes % 7.4 %; Neutrophils # 3.4 K/mcL (1.6-8.9); Platelet Count 246 K/mcL (140-400); Red Blood Count 4.44 M/mcL (3.82-4.97); Red Cell Distribution Width 13.5 % (11.5-14.5); Segmented Neutrophils % 39.5 %
[2016-05-13 07:22] LABS: BUN/Creatinine Ratio 13 (6-26); Blood Urea Nitrogen 12 mg/dL (7-20); Calcium 8.8 mg/dL (8.6-10.8); Carbon Dioxide 26 mEq/L (19-29); Chloride 106 mEq/L (98-109); Glucose 190 mg/dL (70-99); Osmolality,Calculated 293 (280-300); Potassium 5.1 mEq/L (3.5-4.5); Sodium 139 mEq/L (136-145); eGFR For African Americans > 60 (> 60); eGFR For Non-African Americans 60 (> 60)
[2016-05-13 07:25] LABS: Hemoglobin A1C 8.9 %
[2016-05-13] MEDS: Simethicone 80 MG TAB.CHEW PO SCH ×3 (09:26→21:17)
[2016-05-13] MEDS: Gabapentin 300 MG CAPSULE PO SCH ×2 (09:26→21:18)
[2016-05-13] MEDS: Lisinopril 20 MG TABLET PO SCH (09:26)
[2016-05-13] MEDS: Insulin LISPRO 300 UNITS/3 ML VIAL SQ SCH ×4 (09:27→21:18)
--- NOTE | 2016-05-13 09:36 | Internal Med Progress Note ---
Date of Encounter: 05/13/16 Time of Encounter: 08:45 - Assessment and plan (1) Diverticulitis Current Visit: Yes Status: Acute Assessment and plan: Abdominal CT consistent with diverticulitis to the descending/proximal sigmoid colon. On examination, patient's abdomen is no longer distended. She denies abdominal pain. Lower abdomen remains tender to palpation though not as tender as yesterday. We will slowly advance her diet over the next day or 2 and monitor her response. Possible discharge tomorrow if she is able to tolerate a regular diet ITS Impressions Abdomen/Pelvis CT 05/12/16 16:00 IMPRESSION: 1. Findings consistent with uncomplicated diverticulitis involving the distal descending/proximal sigmoid colon. No abscess, free fluid or free air. 2. Otherwise no acute findings within the abdomen or pelvis. D/ / 05/12/2016 17:14:05 Gaurav Eagle MD [facility] Interpreting Provider: Gaurav Eagle MD 05/12/16 Patient continues to complain of pain across her lower abdomen. She is currently tolerating a liquid diet. She is flatulent but has not had a bowel movement since prior to presentation. On examination, abdomen is slightly more distended than yesterday and remains soft with hyperactive bowel sounds throughout. Abdominal CT ordered at this time. Continue Zosyn. 05/11/16 Appears to be an incidental finding during imaging of her lumbar spine however patient endorsing lower abdominal pain and tenderness that started a couple days ago. We will put her on clear diet for bowel rest and continue to monitor. She has not had a bowel movement for several days. She is flatulent. On examination, abdomen distended and diffusely tender across her lower abdomen. Bowel sounds present 4 quadrants. We will initiate Zosyn and monitor. No leukocytosis. 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 There is moderate spinal canal stenosis at L2-L3 and L3-L4. There is [id number]-[id number]-[id number] spinal canal stenosis at L4-L5. Left subarticular disc extrusion at L4-L5 compresses the descending left L5 nerve root. Correlate with clinical symptoms of left L5 radiculopathy. Multilevel neural foraminal narrowing, including moderate left neural foraminal stenosis at L3-L4 and L4-L5. D/ / 05/11/2016 13:49:59 Val Webb MD / elisha Interpreting Provider: Val Webb MD (2) Lumbar nerve root compression Current Visit: Yes Status: Acute Assessment and plan: Patient is seen by spinal surgeon Dr. Sena who referred her to pain management doctor Manas and has cleared her for outpatient follow-up. She was seen and evaluated by occupational and physical therapy but at this point, patient is refusing home health services. 05/11/16 CT of lumbar spine revealing thecal sac compression and MRI revealing nerve root compression of L5. On examination, patient has lumbar radiculopathy on both the right and the left side. I have spoken to Spinal surgeon Dr. Sena who was brought on board for consultation. OT and PT evaluations pending. Of note, family stating that up until last , patient was able to walk and run around with her young granddaughter. They state that she had a mechanical fall and slipped on the monitor on and then starting on Wednesday she became increasingly more weak and was unable to ambulate without 2 people assisting her. These are all new symptoms. Plain films of shoulder and hip unremarkable. ITS Impressions Shoulder X-Ray 05/10/16 09:12 IMPRESSION: No acute bony abnormality. D/ / Billie Padilla Cha, MD / Billie Padilla Cha, MD Interpreting Provider: Billie Padilla Cha, MD Hip/Pelvis X-Ray 05/10/16 09:13 IMPRESSION: No acute osseus abnormality in the pelvis or hips bilaterally. Mild bilateral joint osteoarthritis. D/ / Claudia Alba MD / Claudia Alba MD Interpreting Provider: Claudia Alba MD Lumbar Spine CT 05/11/16 09:45 IMPRESSION: No evidence of lumbar spine fracture or subluxation. Suspect mild -moderate thecal sac compression at L3-4 and moderate multilevel neural foraminal narrowing. Fat stranding surrounds the distal descending colon has the appearance of acute diverticulitis. If the patient has abdominal pain, further evaluation with CT abdomen may be helpful. 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 There is moderate spinal canal stenosis at L2-L3 and L3-L4. There is [id number] spinal canal stenosis at L4-L5. Left subarticular disc extrusion at L4-L5 compresses the descending left L5 nerve root. Correlate with clinical symptoms of left L5 radiculopathy. Multilevel neural foraminal narrowing, including moderate left neural foraminal stenosis at L3-L4 and L4-L5. D/ / 05/11/2016 13:49:59 Val Webb MD / elisha Interpreting Provider: Val Webb MD (3) Bilateral leg weakness Current Visit: No Status: Acute Assessment and plan: See prior note for lumbar nerve root compression; improving daily. (4) Headache Current Visit: Yes Status: Resolved Assessment and plan: Patient currently denies a headache. Head CT negative. 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 Neurology on board and have cleared her for outpatient follow-up with [place] or [facility]. Patient denies vision changes. We will treat symptomatically. 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 CT angiography of the brain with contrast is recommended for further evaluation. The findings were sent to the Radiology Results Communication Center at 1:40 pm on 05/11/2016to be communicated to a licensed caregiver. D/ / 05/11/2016 13:57:45 Jesse Chen MD / henny Interpreting Provider: Jesse Chen MD Qualifiers: Headache type: unspecified Headache chronicity pattern: acute headache Intractability: not intractable Qualified Code(s): R51 - Headache (5) Aneurysm, carotid artery, internal Current Visit: Yes Status: Acute Assessment and plan: See prior note for headache (6) Diabetes mellitus Current Visit: Yes Status: Chronic Assessment and plan: Poorly controlled at home with an A1c of 8.9%. Continue sliding scale while admitted. 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 (9) Hypertension Current Visit: Yes Status: Chronic Assessment and plan: Continues to be borderline hypertensive however the patient is no longer experiencing pain. Heart rate in the low 60s so I will not adjust her metoprolol. She is maxed out on lisinopril. We will add amlodipine and monitor her response. Hydralazine IV as needed Qualifiers: Hypertension type: essential hypertension Qualified Code(s): I10 - Essential (primary) hypertension (10) H/O cervical spine surgery Current Visit: Yes Status: Chronic - Subjective Interval history: Patient seen and examined. On examination, patient is sitting upright in her bed conversing with her family. She states she feels a lot better today. She now denies abdominal pain. - Constitutional Vitals: Temp Pulse Resp BP Pulse Ox 97.7 F 66 21 179/70 96 05/13/16 07:22 05/13/16 07:22 05/13/16 07:22 05/13/16 07:22 05/13/16 07:22 General appearance: Present: A&O X 3, pleasant, no acute distress, answers questions appropriately - Head Head exam: Present: atraumatic, normocephalic - Eye Eye exam: Present: PERRL, conjuntiva pink, sclera anicteric Pupils: Present: PERRL - Neck Neck exam general surgery: Present: supple, trachea midline. Absent: lymphadenopathy - Respiratory Respiratory exam: Present: decreased breath sounds. Absent: accessory muscle use, rales, respiratory distress, rhonchi, wheezes - Cardiovascular Cardiovascular exam: Present: RRR, +S1, +S2. Absent: diastolic murmur, gallop, rubs, systolic murmur - GI/Abdominal GI/Abdominal exam: Present: normal bowel sounds, soft, tenderness (mild), no peritoneal signs. Absent: distended - Extremities Exam Extremities exam: Present: warm, radial pulses palpable and symetrical. Absent : calf tenderness, cyanotic, pedal edema - Neurological Exam Neurological exam: Present: alert, CN II-XII intact, oriented X3, no focal deficits, strengths equal and symetr throughout. Absent: pronater drift, facial droop, speech deficit - Skin Skin exam: Present: dry, intact, normal color, warm Internal Medicine: Result - Labs CBC & Chem 7: 05/13/16 06:16 05/14/16 04:04 Labs: Short CBC 05/13/16 Range/Units 06:16 WBC 8.5 (4.3-11.1) K/mcL Hgb 11.8 (11.5-15.4) g/dL Hct 37.1 (35.3-44.9) % Plt Count 246 (140-400) K/mcL Neutrophils # 3.4 (1.6-8.9) K/mcL BMP 05/13/16 06:16 Sodium 139 Potassium 5.1 H Chloride 106 Carbon Dioxide 26 BUN 12 Creatinine 0.92 Glucose 190 H Calcium 8.8 - Impressions Impressions Abdomen/Pelvis CT 05/12/16 16:00 IMPRESSION: 1. Findings consistent with uncomplicated diverticulitis involving the distal descending/proximal sigmoid colon. No abscess, free fluid or free air. 2. Otherwise no acute findings within the abdomen or pelvis. D/ / 05/12/2016 17:14:05 Gaurav Eagle MD / [facility] Interpreting Provider: Gaurav Eagle MD - VTE Documentation of Mechanical Device: Intermittent pneumatic compression device Consult Discharge Plan - Plan Referrals: Ryan Malagon DO [Partnered Physician] - 07/02/16 11:35 am Franc Lakhani DO [Primary Care Provider] - 05/21/16 2:00 pm
[2016-05-13] MEDS: amLODIPine 5 MG TABLET PO SCH (10:52)
[2016-05-13] MEDS: *HR* OxyCODONE Immed Rel 5 MG TABLET PO PRN (21:18)
[2016-05-14] MEDS: Piperacillin/Tazobactam 3.375 GM in D5% in Water (Mini-Bag+) 100 ML IVPB SCH ×2 (01:39→09:14)
[2016-05-14 05:00] LABS: Calcium 8.4 mg/dL (8.6-10.8); Potassium 4.9 mEq/L (3.5-4.5)
[2016-05-14] MEDS: Lisinopril 20 MG TABLET PO SCH (09:13)
[2016-05-14] MEDS: Gabapentin 300 MG CAPSULE PO SCH (09:14)
[2016-05-14] MEDS: amLODIPine 5 MG TABLET PO SCH (09:14)
[2016-05-14] MEDS: Simethicone 80 MG TAB.CHEW PO SCH (09:14)
[2016-05-14] MEDS: Insulin LISPRO 300 UNITS/3 ML VIAL SQ SCH ×2 (09:15→12:36)
--- NOTE | 2016-05-14 10:56 | Discharge Summary ---
Date of Encounter: 05/14/16 Time of Encounter: 09:00 - Discharge Diagnosis (1) Diverticulitis Priority: Primary Status: Acute Comments: Clinically resolved. Patient able to tolerate a regular diet prior to discharge. Patient had a bowel movement on the night prior to discharge. Abdomen soft and nontender. Zosyn while admitted, will send home on Cipro Qualifiers: Diverticulitis site: unspecified part of intestinal tract Diverticulitis bleeding: without bleeding Diverticulitis complication: without perforation or abscess Qualified Code(s): K57.92 - Diverticulitis of intestine, part unspecified, without perforation or abscess without bleeding (2) Lumbar nerve root compression Priority: Primary Status: Acute Comments: Patient was seen by spinal surgeon Dr. Sena who referred her to pain management doctor Manas and she was cleared for outpatient follow-up. She was seen and evaluated by occupational and physical therapy but refuses home health services. (3) Bilateral leg weakness Priority: Primary Status: Acute Comments: Improved daily while admitted. Refused HH; given Rx for a walker (4) Headache Priority: Primary Status: Resolved Qualifiers: Headache type: unspecified Headache chronicity pattern: acute headache Intractability: not intractable Qualified Code(s): R51 - Headache (5) Aneurysm, carotid artery, internal Priority: Primary Status: Acute Comments: Patient's headache subsided while admitted. Head CT negative. 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 Neurology was on board and cleared her for outpatient follow-up with [facility] or [facility]. Patient denied vision changes. (6) Diabetes mellitus Priority: Secondary Status: Chronic Comments: Poorly controlled at home with an A1c of 8.9%. Recommend continued follow-up outpatient Qualifiers: Diabetes mellitus type: type 2 Diabetes mellitus complication status: with hyperglycemia Diabetes mellitus local [employer] insulin use: with retirement use Qualified Code(s): E11.65 - Type 2 diabetes mellitus with hyperglycemia; Z79.4 - prison (current) use of insulin (7) DENA (acute kidney injury) Priority: Primary Status: Resolved (8) DVT prophylaxis Priority: Primary Status: Acute Comments: IPC's ordered while admitted (9) Hypertension Priority: Secondary Status: Chronic Comments: Heart rate was in the low 60s and upper 50s to her metoprolol dosage was not changed and she is maxed out on lisinopril. Amlodipine was added to her regimen and she was normotensive on day of discharge. Recommend daily blood pressure checks at home, keeping a log, and following up with primary care provider. Qualifiers: Hypertension type: essential hypertension Qualified Code(s): I10 - Essential (primary) hypertension (10) H/O cervical spine surgery Priority: Secondary Status: Chronic - Discharge Medications Prescriptions: Amlodipine [Norvasc] 5 mg PO DAILY #30 tablet Ciprofloxacin HCl [Cipro] 500 mg PO BID #14 tablet Simethicone [Gas-X] 80 mg PO TID PRN #20 tab.chew PRN Reason: Abdominal bloating Home Medications: Bumetanide [Bumex] 0.5 mg PO QAM 03/19/15 [History] Gabapentin [Neurontin] 300 mg PO BID 03/19/15 [History] Insulin ASPART [NovoLOG] 26 - 40 unit SQ BID 03/19/15 [History] Lisinopril [Zestril] 40 mg PO QAM 03/19/15 [History] Metformin [Glucophage] 1,000 mg PO BIDWM 03/19/15 [History] Metoprolol [Lopressor] 50 mg PO BID 03/19/15 [History] Simvastatin [Zocor] 40 mg PO HS 03/19/15 [History] Amlodipine [Norvasc] 5 mg PO DAILY #30 tablet 05/14/16 [Rx] Ciprofloxacin HCl [Cipro] 500 mg PO BID #14 tablet 05/14/16 [Rx] Simethicone [Gas-X] 80 mg PO TID PRN #20 tab.chew 05/14/16 [Rx] Allergies/Adverse Reactions: Allergies No Known Allergies Allergy (Verified 03/19/15 10:39) Procedures/tests Complete & Pending: Procedures Performed prior 72 hours Category Date Time Status CT abd pelvis w iv no oral [CT] Routine Cat Scan 05/12/16 16:00 Completed MR angio head wo con [MR] Routine MRI 05/11/16 11:02 Completed MR lumbar spine wo con [MR] Stat MRI 05/11/16 11:02 Draft Date of admission: 05/11/16 17:05 Primary care physician: Franc Lakhani DO Consults: 05/10/16 14:02 Consult to Neurology [CONS] Routine Consulting Provider: Neurology [facility] Reason for Consult: fall and previous spine surgery Call Completed: Yes 05/11/16 11:39 Consult to Occupational Therapy [CONS] Routine Comment: Evaluate, develop and implement POC Consult to Physical Therapy [CONS] Routine Comment: Evaluate, develop and implement POC Consult to [employer] [CONS] Routine Reason for SW Consult: possible rehab?? 05/11/16 16:06 Consult to Physician [CONS] Routine Consulting Provider: Cristo Sena Jr Reason for Consult: nerve root compression, lumbar, symptomatic Time Notified: 16:06 Call Completed: Yes Discharging clinician: Tina Garcia Anticipated date of discharge: 05/14/16 (refusing HH) - Patient Status Disposition: Home, Self-Care Condition: Fair Functional capacity at discharge: independent ambulation Overall status at discharge: patient is progressing back to baseline - Discharge Instructions Instructions: Meal Planning with Diabetes Exchanges (DC), Fall Prevention (DC) Follow Up With: Ryan Malagon DO [Partnered Physician] - 07/02/16 11:35 am Franc Lakhani DO [Primary Care Provider] - 05/21/16 2:00 pm Additional Instructions: Follow-up with primary care provider, pain management as scheduled. Follow-up with neurologist in 2-3 weeks - Diet and Activity Activity: increase activity as tolerated Diet: diabetic diet, low fat, low cholesterol, low salt diet Hospital course: Ms. Guzman is a 75 year old female with past medical history of COPD, CVA, diabetes, hyperlipidemia, hypertension. Patient was transferred from [facility] emergency Department chief complaint of bilateral lower extremity weakness. Patient stating she had fallen and slipped on the modified and was laying down in a [place] for more than 10 minutes before she was found. She landed on her right side. This fall occurred on and the patient was taken home by her family. Starting on Wednesday, patient started to experience persistent back pain, neck pain, and a headache that had gotten progressively worse prompting her presentation at the emergency department. Workup in the emergency department unremarkable. Cervical spine CT negative. Head CT negative. Patient was transferred [facility] and admitted to the hospitalist service for further evaluation and management. Patient continued to endorse lower back pain and lower extremity weakness so a CT was performed of her lumbar spine which revealed thecal sac compression. Subsequent MRI revealing nerve root compression of L5. On examination initially in her admission, patient had lumbar radiculopathy bilaterally. Spinal surgeon Dr. Sena was brought on board who recommended patient follow- up with pain management doctor Manas and felt she was not in need of surgery at this time. Her strength slowly improved over the course of her 5 day admission. She was seen by occupational and physical therapy both of whom recommended home health. Patient declined home health stating she had a lot of family support. Incidentally on her lumbar spine CT, she was noted to have diverticulitis. An abdominal CT was then performed which revealed acute diverticulitis to her descending/proximal sigmoid colon. She was treated with Zosyn while admitted and remained with stable vital signs. No signs of sepsis while during this admission. She had mild acute kidney injury that resolved. She remained hypertensive even with her pain controlled and resumption of her regular home medications of amlodipine was added to her regimen and she was normotensive on day of discharge. 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 Neurology brought on board and cleared her for outpatient follow-up with [facility] or [facility]. Patient stating aneurysms run in her family and she stated that she would set herself up with the neurologist at [facility] who handled her family members cases. Her headache subsided throughout this admission. She remained alert and oriented 3 throughout this admission. She was treated with Zosyn and sent home on ciprofloxacin for her acute diverticulitis. She was initially placed on a clear liquid diet for 2 days, she then had a large bowel movement and was able to tolerate regular food prior to discharge. On day of discharge, her abdomen was soft and nontender with positive bowel sounds. She was discharged home in stable condition with close outpatient follow-up recommended. ITS Impressions Cervical spine without contrast CT impression at [place]: No acute abnormality of the cervical spine. Head CT without contrast at [facility] impression: no acute intracranial abnormality Shoulder X-Ray 05/10/16 09:12 IMPRESSION: No acute bony abnormality. D/ / Billie Padilla Cha, MD / Billie Padilla Cha, MD Interpreting Provider: Billie Padilla Cha, MD Hip/Pelvis X-Ray 05/10/16 09:13 IMPRESSION: No acute osseus abnormality in the pelvis or hips bilaterally. Mild bilateral joint osteoarthritis. D/ / Claudia Alba MD / Claudia Alba MD Interpreting Provider: Claudia Alba MD Lumbar Spine CT 05/11/16 09:45 IMPRESSION: No evidence of lumbar spine fracture or subluxation. Suspect mild -moderate thecal sac compression at L3-4 and moderate multilevel neural foraminal narrowing. Fat stranding surrounds the distal descending colon has the appearance of acute diverticulitis. If the patient has abdominal pain, further evaluation with CT abdomen may be helpful. 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 CT angiography of the brain with contrast is recommended for further evaluation. The findings were sent to the Radiology Results [facility] at 1:40 pm on 05/11/2016to be communicated to a licensed caregiver. 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 There is moderate spinal canal stenosis at L2-L3 and L3-L4. There is [id number] spinal canal stenosis at L4-L5. Left subarticular disc extrusion at L4-L5 compresses the descending left L5 nerve root. Correlate with clinical symptoms of left L5 radiculopathy. Multilevel neural foraminal narrowing, including moderate left neural foraminal stenosis at L3-L4 and L4-L5. D/ / 05/11/2016 13:49:59 Val Webb MD / ebkatalina Interpreting Provider: Val Webb MD Abdomen/Pelvis CT 05/12/16 16:00 IMPRESSION: 1. Findings consistent with uncomplicated diverticulitis involving the distal descending/proximal sigmoid colon. No abscess, free fluid or free air. 2. Otherwise no acute findings within the abdomen or pelvis. D/ / 05/12/2016 17:14:05 Gaurav Eagle MD / henny Interpreting Provider: Gaurav Eagle MD - Time Spent with Patient Total time spent providing and/or coordinating discharge services: - Constitutional Vitals: Temp Pulse Resp BP Pulse Ox 97.8 F 101 16 114/68 92 L 05/14/16 08:26 05/14/16 08:26 05/14/16 08:26 05/14/16 08:26 05/14/16 08:26 General appearance: Present: A&O X 3, pleasant, no acute distress, answers questions appropriately - Head Head exam: Present: atraumatic, normocephalic - Eye Eye exam: Present: PERRL, conjuntiva pink, sclera anicteric Pupils: Present: PERRL - Neck Neck exam general surgery: Present: supple, trachea midline. Absent: lymphadenopathy - Respiratory Respiratory exam: Present: CTAB. Absent: accessory muscle use, rales, respiratory distress, rhonchi, wheezes - Cardiovascular Cardiovascular exam: Present: RRR, +S1, +S2. Absent: diastolic murmur, gallop, rubs, systolic murmur - GI/Abdominal GI/Abdominal exam: Present: normal bowel sounds, soft, no peritoneal signs. Absent: distended, tenderness - Extremities Exam Extremities exam: Present: warm, radial pulses palpable and symetrical. Absent : calf tenderness, cyanotic, pedal edema - Neurological Exam Neurological exam: Present: alert, CN II-XII intact, oriented X3, no focal deficits, strengths equal and symetr throughout. Absent: pronater drift, facial droop, speech deficit - Skin Skin exam: Present: dry, intact, normal color, warm - VTE Documentation of Mechanical Device: Intermittent pneumatic compression device
[2016-05-14] MEDS: *HR* OxyCODONE Immed Rel 5 MG TABLET PO PRN (11:07)
[2016-05-14 11:32] VITALS: BP 154/90
== END 2016-05-14 14:55 | disposition home or self-care (01) | DRG 552 ==
LOC: 3BNU → SUATTDRO 05-11 17:05
PROVIDERS: ADMIT Internal Medicine; ATTEND Nurse Practitioner Family

== ENCOUNTER 2019-12-01 16:19 | Inpatient (IN) ==
[2019-12-01 17:02] LABS: Basophils % 0.4 %; Eosinophils # 0.3 K/mcL (0.0-0.6); Eosinophils % 2.7 %; Hematocrit 39.9 % (35.3-44.9); Hemoglobin 12.3 g/dL (11.5-15.4); Immature Granulocytes % 0.5 % (0-4); Lymphocytes # 3.8 K/mcL (0.6-4.6); Lymphocytes % 41.7 %; Mean Corpuscular HGB Conc 30.8 g/dL (31.6-35.5); Mean Corpuscular Hemoglobin 26.6 pg (28.0-33.3); Mean Corpuscular Volume 86.4 fL (83.0-100.0); Mean Platelet Volume 11.4 fL (9.4-12.4); Monocytes # 0.6 K/mcL (0.0-1.3); Monocytes % 6.9 %; Neutrophils # 4.4 K/mcL (1.6-8.9); Platelet Count 231 K/mcL (140-400); Red Blood Count 4.62 M/mcL (3.82-4.97); Segmented Neutrophils % 47.8 %; White Blood Count 9.2 K/mcL (4.3-11.1)
[2019-12-01 17:10] LABS: INR 0.9; Prothrombin Time 10.6 Seconds (9.4-12.1)
[2019-12-01 17:13] LABS: Activated Partial Thrombo Time 22.4 Seconds (26.0-36.0)
[2019-12-01 17:24] LABS: BUN/Creatinine Ratio 25 (6-26); Blood Urea Nitrogen 34 mg/dL (8-23); Calcium 9.2 mg/dL (8.6-10.3); Carbon Dioxide 24 mEq/L (23-29); Chloride 104 mEq/L (98-107); Glucose 411 mg/dL (70-105); Osmolality,Calculated 301 (280-300); Potassium 5.1 mEq/L (3.5-5.1); Sodium 133 mEq/L (136-145); Troponin I < 0.03 ng/mL (< 0.04); eGFR For African Americans 45 (> 60); eGFR For Non-African Americans 38 (> 60)
[2019-12-01] MEDS ORDERED: *HR* Heparin 5,000 UNIT/ML VIAL IVP PRN ×2 (17:32)
[2019-12-01] MEDS ORDERED: *HR* Heparin 5,000 UNIT/ML VIAL IVP ONE (17:32)
[2019-12-01 17:41] LABS: Heparin anti-factor XA UFH < 0.04 IU/mL (0.30-0.70)
[2019-12-01 17:44] LABS: Bilirubin,Urine Negative (Negative); Blood,Urine Negative (Negative); Clarity,Urine Clear (Clear); Color,Urine Colorless (Yellow); Glucose,Urine (UA) >=1000 mg/dL (Normal); Ketones,Urine Negative (Negative); Leukocyte Esterase,Urine Negative (Negative); Mucus,Urine Few per lpf (None-Few); Nitrite,Urine Negative (Negative); Protein,Urine 100 mg/dL (Neg-Trace); RBC,Urine 0-3 per hpf (0-3); Specific Gravity,Urine 1.019 (1.010-1.025); Squamous Epithelial Cell,Urine Few per hpf (None-Few); Urobilinogen,Urine Normal (Normal); WBC,Urine 0-3 per hpf (0-3)
[2019-12-01] MEDS ORDERED: Heparin 25,000UNIT/250ML 1/2NS 25,000 UNIT/250 ML IV.SOLN IVC SCH (17:45)
[2019-12-01] MEDS ORDERED: *HR* Dextrose 50 % in Water (Vial) 50 ML VIAL IVP PRN (20:44)
[2019-12-01] MEDS ORDERED: Dextrose Gel 15 GM/37.5 ML TUBE PO PRN ×2 (20:44)
[2019-12-01] MEDS ORDERED: D5% in Water 1,000 ML IVC PRN (20:44)
[2019-12-01] MEDS: Metoprolol 100 MG TABLET PO SCH (21:24)
[2019-12-01] MEDS ORDERED: 0.9 % Sodium Chloride 1,000 ML ONE (21:50)
[2019-12-01] MEDS ORDERED: 0.9 % Sodium Chloride 1,000 ML IVC SCH (22:00)
[2019-12-02 00:37] LABS: Basophils % 0.4 %; Eosinophils # 0.4 K/mcL (0.0-0.6); Eosinophils % 3.9 %; Hematocrit 35.3 % (35.3-44.9); Hemoglobin 11.3 g/dL (11.5-15.4); Immature Granulocytes % 0.3 % (0-4); Lymphocytes # 5.1 K/mcL (0.6-4.6); Lymphocytes % 52.9 %; Mean Corpuscular Hemoglobin 27.8 pg (28.0-33.3); Mean Corpuscular Volume 86.9 fL (83.0-100.0); Mean Platelet Volume 11.5 fL (9.4-12.4); Monocytes # 0.6 K/mcL (0.0-1.3); Neutrophils # 3.5 K/mcL (1.6-8.9); Platelet Count 213 K/mcL (140-400); Red Blood Count 4.06 M/mcL (3.82-4.97); Red Cell Distribution Width 13.7 % (11.5-14.5); Segmented Neutrophils % 36.5 %; White Blood Count 9.7 K/mcL (4.3-11.1)
[2019-12-02 00:55] LABS: Calcium 8.5 mg/dL (8.6-10.3); Potassium 4.8 mEq/L (3.5-5.1)
[2019-12-02] MEDS ORDERED: Insulin DETEMIR 100 UNIT/ML X5UNITS SQ SCH (09:00)
[2019-12-02] MEDS: Aspirin Enteric Coated 81 MG Tablet PO SCH (09:33)
[2019-12-02] MEDS: amLODIPine 5 MG TABLET PO SCH (09:33)
[2019-12-02] MEDS: Metoprolol 100 MG TABLET PO SCH (09:33)
[2019-12-02] MEDS ORDERED: Nitroglycerin 1 INCH/GM PACKET TP ONE (11:38)
[2019-12-02] MEDS ORDERED: Heparin 1,000 UNITS/500 mL 500 ML ONE (13:24)
[2019-12-02] MEDS ORDERED: ISOVUE-370 200 ML INFUS..BTL ONE ×2 (13:24→15:04)
[2019-12-02] MEDS ORDERED: 0.9 % Sodium Chloride 2,000 ML ONE (13:24)
[2019-12-02] MEDS ORDERED: *HR* Heparin 10,000 UNIT/10 ML VIAL ONE (13:24)
[2019-12-02] MEDS ORDERED: Nitroglycerin 1,000 MCG/10 ML VIAL IV ONE (13:24)
[2019-12-02] MEDS ORDERED: *HR* Midazolam HCl 2 MG/2 ML VIAL ONE (13:37)
[2019-12-02] MEDS ORDERED: *HR* FentaNYL (PF) 100 MCG/2 ML VIAL ONE (13:38)
[2019-12-02] MEDS ORDERED: Tirofiban 12.5 MG/250ML 12.5 MG/250 ML BAG ONE (15:00)
[2019-12-02] MEDS ORDERED: Tirofiban 12.5 MG/250ML 12.5 MG/250 ML BAG IVC SCH (15:30)
[2019-12-02] MEDS ORDERED: D5% in Water 1,000 ML IVC PRN (17:27)
[2019-12-02] MEDS ORDERED: Dextrose Gel 15 GM/37.5 ML TUBE PO PRN ×2 (17:27)
[2019-12-02] MEDS ORDERED: *HR* Dextrose 50 % in Water (Vial) 50 ML VIAL IVP PRN (17:27)
[2019-12-02] MEDS ORDERED: *HR* Atropine Sulfate 1 MG/10 ML SYRINGE ONE (17:32)
[2019-12-02] MEDS: carvediloL 6.25 MG TABLET PO SCH (18:49)
[2019-12-02] MEDS: Insulin LISPRO 300 UNITS/3 ML VIAL SQ SCH (18:52)
[2019-12-02] MEDS ORDERED: Insulin LISPRO 300 UNITS/3 ML VIAL SQ SCH (21:00)
[2019-12-03] MEDS: Aspirin Enteric Coated 81 MG Tablet PO SCH (08:14)
[2019-12-03] MEDS: amLODIPine 5 MG TABLET PO SCH (08:14)
[2019-12-03] MEDS: carvediloL 6.25 MG TABLET PO SCH (08:14)
[2019-12-03] MEDS: Insulin LISPRO 300 UNITS/3 ML VIAL SQ SCH ×2 (08:15→12:03)
[2019-12-03 09:31] LABS: Basophils % 0.4 %; Eosinophils # 0.4 K/mcL (0.0-0.6); Eosinophils % 4.3 %; Hematocrit 35.7 % (35.3-44.9); Hemoglobin 11.3 g/dL (11.5-15.4); Immature Granulocytes % 0.3 % (0-4); Lymphocytes # 3.8 K/mcL (0.6-4.6); Lymphocytes % 40.9 %; Mean Corpuscular HGB Conc 31.7 g/dL (31.6-35.5); Mean Corpuscular Hemoglobin 27.7 pg (28.0-33.3); Mean Corpuscular Volume 87.5 fL (83.0-100.0); Mean Platelet Volume 12.1 fL (9.4-12.4); Monocytes # 0.5 K/mcL (0.0-1.3); Monocytes % 5.7 %; Neutrophils # 4.5 K/mcL (1.6-8.9); Platelet Count 209 K/mcL (140-400); Red Blood Count 4.08 M/mcL (3.82-4.97); Red Cell Distribution Width 13.8 % (11.5-14.5); Segmented Neutrophils % 48.4 %; White Blood Count 9.4 K/mcL (4.3-11.1)
[2019-12-03 09:48] LABS: Calcium 8.7 mg/dL (8.6-10.3); Magnesium 1.9 mg/dL (1.6-2.6); Potassium 4.4 mEq/L (3.5-5.1)
[2019-12-03 11:35] VITALS: BP 104/43
== END 2019-12-03 14:23 | disposition home or self-care (01) | DRG 247 ==
LOC: 3ANU 16:19 → EMEROOARM 16:19 → SUATTDRO 18:59 → 3ANU 19:30 → 2NNU 12-02 15:30
PROVIDERS: ADMIT Pharmacist; ATTEND Student in an Organized Health Care Education/Training Program

== ENCOUNTER 2020-12-31 21:17 | Observation (INO) ==
[2020-12-31 22:02] LABS: Basophils % 0.2 %; Eosinophils # 0.1 K/mcL (0.0-0.6); Eosinophils % 0.3 %; Hematocrit 32.7 % (35.3-44.9); Hemoglobin 10.6 g/dL (11.5-15.4); Immature Granulocytes % 0.5 % (0-4); Lymphocytes # 1.3 K/mcL (0.6-4.6); Lymphocytes % 7.5 %; Mean Corpuscular HGB Conc 32.4 g/dL (31.6-35.5); Mean Corpuscular Hemoglobin 26.7 pg (28.0-33.3); Mean Corpuscular Volume 82.4 fL (83.0-100.0); Mean Platelet Volume 10.5 fL (9.4-12.4); Monocytes # 0.8 K/mcL (0.0-1.3); Monocytes % 4.4 %; Neutrophils # 15.4 K/mcL (1.6-8.9); Platelet Count 449 K/mcL (140-400); Red Blood Count 3.97 M/mcL (3.82-4.97); Red Cell Distribution Width 13.4 % (11.5-14.5); Segmented Neutrophils % 87.1 %; White Blood Count 17.6 K/mcL (4.3-11.1)
[2020-12-31 22:23] LABS: BUN/Creatinine Ratio 23 (6-26); Blood Urea Nitrogen 43 mg/dL (8-23); Calcium 8.9 mg/dL (8.6-10.3); Carbon Dioxide 22 mEq/L (23-29); Chloride 99 mEq/L (98-107); Glucose 229 mg/dL (70-105); Osmolality,Calculated 292 (280-300); Potassium 4.8 mEq/L (3.5-5.1); Sodium 132 mEq/L (136-145); eGFR For African Americans 31 (> 60); eGFR For Non-African Americans 26 (> 60)
[2020-12-31 22:25] LABS: Troponin I < 0.03 ng/mL (< 0.04)
[2020-12-31] MEDS ORDERED: 0.9 % Sodium Chloride 500 ML IVC ONE (22:33)
[2020-12-31 22:37] LABS: Influenza A PCR Negative (Negative); Influenza B PCR Negative (Negative); Resp. Syncytial Virus PCR Negative (Negative)
[2020-12-31 22:38] LABS: SARS-CoV-2 by PCR (In House) Negative (Negative)
[2020-12-31] MEDS ORDERED: 0.9 % Sodium Chloride 1,000 ML IVC ONE (23:07)
[2020-12-31 23:11] LABS: Bacteria,Urine Few per hpf (None-Few); Bilirubin,Urine Negative (Negative); Blood,Urine Small (Negative); Clarity,Urine Turbid (Clear); Color,Urine Light-Yellow (Yellow); Glucose,Urine (UA) 200 mg/dL (Normal); Granular Casts,Urine Few per lpf (None Seen); Hyaline Casts,Urine Few per lpf (None Seen); Ketones,Urine Negative (Negative); Leukocyte Esterase,Urine Negative (Negative); Mucus,Urine Few per lpf (None-Few); Nitrite,Urine Negative (Negative); Protein,Urine >=300 mg/dL (Neg-Trace); RBC,Urine 0-3 per hpf (0-3); Specific Gravity,Urine 1.016 (1.010-1.025); Squamous Epithelial Cell,Urine Few per hpf (None-Few); Urobilinogen,Urine Normal (Normal)
[2021-01-01] MEDS ORDERED: cefTRIAXone 1,000 MG in Water for inj. (sterile) 10 ML IVP ONE (00:40)
[2021-01-01] MEDS ORDERED: MetroNIDAZOLE 500 MG/100 ML 500 MG/100 ML BAG IVPB STA (00:40)
[2021-01-01] MEDS ORDERED: Ondansetron 4 MG/2 ML VIAL IVP PRN (02:02)
[2021-01-01] MEDS ORDERED: Acetaminophen 325 MG TABLET PO PRN (02:02)
[2021-01-01] MEDS ORDERED: Naloxone 0.4 MG/ML INJ IVP PRN (02:02)
[2021-01-01] MEDS ORDERED: Dextrose Gel 15 GM/37.5 ML TUBE PO PRN ×2 (02:30)
[2021-01-01] MEDS ORDERED: D5% in Water 1,000 ML IVC PRN (02:30)
[2021-01-01] MEDS ORDERED: *HR* Dextrose 50 % in Water (Syg) 50 ML SYRINGE IVP PRN (02:30)
[2021-01-01] MEDS ORDERED: Perflutren Lipid Microsphere 1.3 ML in 0.9 % Sodium Chloride 8.7 ML IVP PRN (02:31)
[2021-01-01] MEDS ORDERED: 0.9 % Sodium Chloride 1,000 ML IVC ONE (03:02)
[2021-01-01] MEDS: *HR* HYDROcodone/Acet 5/325 mg TABLET PO PRN ×2 (03:29→22:06)
[2021-01-01] MEDS: *HR* Heparin 5,000 UNIT/ML VIAL SQ SCH ×2 (06:01→17:36)
[2021-01-01] MEDS ORDERED: carvediloL 6.25 MG TABLET PO SCH (08:00)
[2021-01-01] MEDS ORDERED: Piperacillin/Tazobactam 3.375 GM in 0.9 % Sodium Chloride Mini Bag 100 ML IVPB SCH (08:00)
[2021-01-01] MEDS: Aspirin Enteric Coated 81 MG Tablet PO SCH (08:36)
[2021-01-01] MEDS: Lactobacillus 1 EACH CAP.SPRINK PO SCH ×2 (08:36→22:06)
[2021-01-01] MEDS: carvediloL 6.25 MG TABLET PO SCH ×2 (08:36→23:33)
[2021-01-01] MEDS: Insulin LISPRO 300 UNITS/3 ML VIAL SUBQ SCH ×3 (08:40→17:38)
[2021-01-01] MEDS ORDERED: MetroNIDAZOLE 500 MG/100 ML 500 MG/100 ML BAG IVPB SCH (08:45)
[2021-01-01 08:59] LABS: Campylobacter by PCR Not detected (Not detect)
[2021-01-01 09:00] LABS: C.difficile Toxin A/B Gene PCR DETECTED (Not detect); Enteroaggregative E.coli(EAEC) Not detected (Not detect); Enteropathogenic E.coli(EPEC) Not detected (Not detect); Plesiomonas shigelloides PCR Not detected (Not detect); Salmonella PCR Not detected (Not detect); Vibrio PCR Not detected (Not detect); Vibrio cholerae PCR Not detected (Not detect); Yersinia enterocolitica PCR Not detected (Not detect)
[2021-01-01 09:01] LABS: Adenovirus F 40/41 PCR Not detected (Not detect); Astrovirus PCR Not detected (Not detect); Cryptosporidium by PCR Not detected (Not detect); Cyclospora cayetanensis PCR Not detected (Not detect); E. coli O157 by PCR Not detected (Not detect); Entamoeba histolytica PCR Not detected (Not detect); Enterotoxigenic E.coli (ETEC) Not detected (Not detect); Giardia lamblia PCR Not detected (Not detect); Norovirus GI/GII PCR Not detected (Not detect); Rotavirus A PCR Not detected (Not detect); Sapovirus PCR Not detected (Not detect); Shig/EnteroinvasiveE coli EIEC Not detected (Not detect); Shigalike tox-prod E coli STEC Not detected (Not detect)
[2021-01-01] MEDS: Vancomycin Oral Soln 125 MG/2.5 ML UDC PO SCH ×4 (10:07→22:05)
[2021-01-01] MEDS ORDERED: Insulin LISPRO 300 UNITS/3 ML VIAL SUBQ SCH (21:00)
[2021-01-01] MEDS: Metoprolol 100 MG TABLET PO SCH (22:05)
[2021-01-02] MEDS ORDERED: cefTRIAXone 1,000 MG in Water for inj. (sterile) 10 ML IVP SCH (00:45)
[2021-01-02 04:03] LABS: Basophils % 0.2 %; Eosinophils # 0.2 K/mcL (0.0-0.6); Eosinophils % 1.1 %; Hematocrit 29.4 % (35.3-44.9); Hemoglobin 9.3 g/dL (11.5-15.4); Immature Granulocytes % 0.6 % (0-4); Lymphocytes # 3.6 K/mcL (0.6-4.6); Lymphocytes % 26.7 %; Mean Corpuscular HGB Conc 31.6 g/dL (31.6-35.5); Mean Corpuscular Hemoglobin 26.6 pg (28.0-33.3); Mean Platelet Volume 10.8 fL (9.4-12.4); Monocytes # 0.9 K/mcL (0.0-1.3); Monocytes % 6.8 %; Neutrophils # 8.6 K/mcL (1.6-8.9); Platelet Count 375 K/mcL (140-400); Red Cell Distribution Width 13.5 % (11.5-14.5); Segmented Neutrophils % 64.6 %; White Blood Count 13.4 K/mcL (4.3-11.1)
[2021-01-02 04:09] LABS: Phosphorous 3.2 mg/dL (2.7-4.5); Potassium 3.7 mEq/L (3.5-5.1)
[2021-01-02] MEDS: *HR* Heparin 5,000 UNIT/ML VIAL SQ SCH (05:50)
[2021-01-02 07:05] VITALS: BP 151/64; PULSE 66; TEMP 98.9; O2SAT 90
[2021-01-02] MEDS: Insulin LISPRO 300 UNITS/3 ML VIAL SUBQ SCH (08:46)
[2021-01-02] MEDS: Aspirin Enteric Coated 81 MG Tablet PO SCH (08:54)
[2021-01-02] MEDS: Metoprolol 100 MG TABLET PO SCH (08:54)
[2021-01-02] MEDS: Vancomycin Oral Soln 125 MG/2.5 ML UDC PO SCH (08:54)
[2021-01-02] MEDS: Lactobacillus 1 EACH CAP.SPRINK PO SCH (08:54)
== END 2021-01-02 10:54 | disposition home or self-care (01) ==
LOC: 3ANU 21:17 → EMEROOARM 21:17 → SUATTDRO 01-01 01:15 → 3ANU 01-01 02:01
PROVIDERS: ADMIT Internal Medicine; ATTEND Internal Medicine